=== PATIENT | female | born 1980 | race African-American/Black ===

== ENCOUNTER 2024-02-22 14:52 | Emergency (ER) | payer SELFPAY ==
[2024-02-22 14:57] VITALS: BP 122/72
--- NOTE | 2024-02-22 14:58 | ED.GENMED ---
ED Provider Triage
<Palak Montemayor WORKFORCE MANAGER - Last Filed: 02/22/24 15:02>
-
Patient seen by provider in Triage?: Seen in Triage
Attestation: A medical screening examination has been initiated by a qualified medical provider. Based on the assessment performed at this time, it has been determined that an emergent medical condition may exist and the patient has been informed
that further medical evaluation and possible additional diagnostic testing may be needed.
HPI: 43-year-old female with history of sickle cell anemia states she started to have sickle cell pain 4 days ago. Taking Dilaudid 8 mg q 4-6 hours as needed. Last dose 8 a.m.
Just moved here from [place] 3 weeks ago, has no doctor.
GENERAL: Alert , in no apparent distress
EYE: No visual abnormalities.
ENT: No visible abnormalities.
LUNGS: No acute respiratory distress
NEUROLOGICAL: Alert and oriented
SKIN: Skin intact. No visible changes.
MUSCULOSKELETAL: Moving extremities normally
PSYCH: Normal and appropriate interaction.
This is a medical evaluation conducted in person to initiate diagnostic evaluation and provide initial therapeutics. Please see further documentation by the treating clinician.
History of Present Illness
<Palak Montemayor, WORKFORCE MANAGER - Last Filed: 02/22/24 15:02>
General
Chief Complaint: Generalized Pain
Time Seen by Provider: 02/22/24 15:58
<Benjamín Bryant PA-C - Last Filed: 02/22/24 16:12>
General
Source: patient
History of Present Illness
History of Present Illness:
43-year-old female with history of sickle cell anemia presents with a pain crisis that started about 3 to 4 days ago. She is a recent transplant from [place]. She has been receiving care at [facility]. She is on hydroxyurea and folic
acid. She typically takes 8 mg of Dilaudid every 4 hours as needed for pain. She notes pain in her back and her legs typical with her prior pain crises. No fever or cough. No chest pain or shortness of breath. No other complaints at this time
Phy Exam
<Benjamín Bryant PA-C - Last Filed: 02/22/24 16:12>
Physical Exam
Physical Exam:
General: Well-appearing female no acute respiratory distress
HEENT: Normocephalic atraumatic
Heart: Regular rate and rhythm
Lungs: Clear no wheeze
Abdomen: Soft nontender nondistended
Extremities: No cyanosis
Skin: Warm no rash
Course
<Palak Montemayor NP - Last Filed: 02/22/24 15:02>
Orders/Labs/Results
Orders:
Orders
02/22/24 16:06
0.9% Sodium Chloride 1000 ml [Nss] 1,000 ml IV BOLUS
HYDROmorphone [Dilaudid] 2 mg IV NOW STA
02/22/24 17:00
Complete Blood Count/With Diff Urgent
Comprehensive Metabolic Panel Urgent
Reticulocyte Count Urgent
02/22/24 18:34
HYDROmorphone [Dilaudid] 2 mg IV NOW STA
Abnormal Lab Results
02/22/24
17:00
RBC 3.30 L 10^6/uL
(4.20-5.40)
Hgb 9.9 L g/dL
(12.0-16.0)
Hct 31.6 L %
(37.0-47.0)
MCHC 31.3 L g/dL
(33.0-37.0)
RDW 21.2 H %
(11.5-14.5)
Absolute Lymphs (auto) 0.7 L 10^3/uL
(1.2-3.4)
Neutrophils % 80.8 H %
(42.2-75.2)
Lymphocytes % 9.8 L %
(20.5-51.1)
AST 40 H U/L
(14-36)
02/22/24 17:00
02/22/24 17:00
Vital Signs
Initial and Last Documented VS:
Initial Vital Signs
Temp Pulse Resp BP Pulse Ox
98.0 F 104 16 122/72 98
02/22/24 14:57 02/22/24 14:57 02/22/24 14:57 02/22/24 14:57 02/22/24 14:57
Last Documented Vital Signs
Temp Pulse Resp BP Pulse Ox
98.5 F 86 20 136/75 99
02/22/24 15:52 02/22/24 15:52 02/22/24 15:52 02/22/24 15:52 02/22/24 15:52
<Benjamín Bryant PA-C - Last Filed: 02/22/24 16:12>
Orders/Labs/Results
Orders:
Orders
02/22/24 16:06
0.9% Sodium Chloride 1000 ml [Nss] 1,000 ml IV BOLUS
HYDROmorphone [Dilaudid] 2 mg IV NOW STA
02/22/24 17:00
Complete Blood Count/With Diff Urgent
Comprehensive Metabolic Panel Urgent
Reticulocyte Count Urgent
02/22/24 18:34
HYDROmorphone [Dilaudid] 2 mg IV NOW STA
Abnormal Lab Results
02/22/24
17:00
RBC 3.30 L 10^6/uL
(4.20-5.40)
Hgb 9.9 L g/dL
(12.0-16.0)
Hct 31.6 L %
(37.0-47.0)
MCHC 31.3 L g/dL
(33.0-37.0)
RDW 21.2 H %
(11.5-14.5)
Absolute Lymphs (auto) 0.7 L 10^3/uL
(1.2-3.4)
Neutrophils % 80.8 H %
(42.2-75.2)
Lymphocytes % 9.8 L %
(20.5-51.1)
AST 40 H U/L
(14-36)
02/22/24 17:00
02/22/24 17:00
Vital Signs
Initial and Last Documented VS:
Initial Vital Signs
Temp Pulse Resp BP Pulse Ox
98.0 F 104 16 122/72 98
02/22/24 14:57 02/22/24 14:57 02/22/24 14:57 02/22/24 14:57 02/22/24 14:57
Last Documented Vital Signs
Temp Pulse Resp BP Pulse Ox
98.5 F 86 20 136/75 99
02/22/24 15:52 02/22/24 15:52 02/22/24 15:52 02/22/24 15:52 02/22/24 15:52
<Charles Lee PA-C - Last Filed: 02/22/24 19:55>
Orders/Labs/Results
Orders:
Orders
02/22/24 16:06
0.9% Sodium Chloride 1000 ml [Nss] 1,000 ml IV BOLUS
HYDROmorphone [Dilaudid] 2 mg IV NOW STA
02/22/24 17:00
Complete Blood Count/With Diff Urgent
Comprehensive Metabolic Panel Urgent
Reticulocyte Count Urgent
02/22/24 18:34
HYDROmorphone [Dilaudid] 2 mg IV NOW STA
Abnormal Lab Results
02/22/24
17:00
RBC 3.30 L 10^6/uL
(4.20-5.40)
Hgb 9.9 L g/dL
(12.0-16.0)
Hct 31.6 L %
(37.0-47.0)
MCHC 31.3 L g/dL
(33.0-37.0)
RDW 21.2 H %
(11.5-14.5)
Absolute Lymphs (auto) 0.7 L 10^3/uL
(1.2-3.4)
Neutrophils % 80.8 H %
(42.2-75.2)
Lymphocytes % 9.8 L %
(20.5-51.1)
AST 40 H U/L
(14-36)
02/22/24 17:00
02/22/24 17:00
Vital Signs
Initial and Last Documented VS:
Initial Vital Signs
Temp Pulse Resp BP Pulse Ox
98.0 F 104 16 122/72 98
02/22/24 14:57 02/22/24 14:57 02/22/24 14:57 02/22/24 14:57 02/22/24 14:57
Last Documented Vital Signs
Temp Pulse Resp BP Pulse Ox
98.5 F 86 20 136/75 99
02/22/24 15:52 02/22/24 15:52 02/22/24 15:52 02/22/24 15:52 02/22/24 15:52
<Benjamín Bryant PA-C - Last Filed: 02/22/24 16:12>
MDM/Problems Addressed
Differential Diagnosis Includes:
Patient with history of sickle cell anemia presents with sickle cell crisis. She notes pain to her back and legs. Will check labs including reticulocyte count. Fluids ordered pain medicine ordered.
<Charles Lee PA-C - Last Filed: 02/22/24 19:55>
*Critical Care Note
Total Time (30-74mins, 75-104mins- exclusive of procedures): Not Applicable
<Charles Lee PA-C - Last Filed: 02/22/24 19:55>
Update Note
Update Note:
Assumed care of patient from Moody Bryant PA-C at shift change 1700. Awaiting labs and reassessment for pain control for presumed sickle cell crisis
On reassessment the patient is complaining continued pain however she has a normal reticulocyte count and normal total bilirubin, highly unlikely that this patient is in acute sickle cell crisis she is clinically stable, no further doses of
hydromorphone given, discharged in stable condition, given information for outpatient hematology follow-up
ED Attending Note
<Palak Montemayor NP - Last Filed: 02/22/24 15:02>
-
Portions of this chart may have been created with voice recognition software.� Occasional wrong word or��sound alike� substitutions may have occurred due to the inherent limitations of voice recognition software.
Discharge Plan
Departure
Patient Disposition: Home (Routine Discharge)
Date of Disposition: 02/22/24
Time of Disposition: 18:48
Patient with high blood pressure during this ER visit?: No
Discharge Problem:
Myalgia
Instructions: Chronic Pain (DC)
Prescriptions:
No Action
hydromorphone [Dilaudid] 8 mg Tablet
8 mg PO Q4H PRN (Reason: pain)
Referrals:
Emmy Lowery MD [Active] -
NONE,* [Family Provider] -
Interventions
Interventions:
*Risk Screen - Suicide Last Done: 02/22/24 14:57
*General Assessment Last Done: 02/22/24 15:52
*Neglect/Abuse Screening Last Done: 02/22/24 14:57
ED- Fall Risk Assessment Last Done: 02/22/24 15:52
*ED COVID-19 Vaccine History Last Done: 02/22/24 15:52
*Nursing Disposition Last Done: 02/22/24 18:56
Discharge Date and Time
Discharge Date/Time: 02/22/24 18:57
Print Language: CITIZEN OF [place]
[2024-02-22 15:52] VITALS: BP 136/75; BMI 49.8
--- NOTE | 2024-02-22 16:53 | EDRN ---
Td FIELDS currently at the pts bedside with Moody IFELDS attempting to place a PIV with ultrasound
[2024-02-22] MEDS: DILAUDID 2 MG IV (16:58)
[2024-02-22] MEDS: NSS 1000 IV (16:58)
[2024-02-22 17:21] LABS: Hematocrit 31.6 % (37.0-47.0); Hemoglobin 9.9 g/dL (12.0-16.0); Mean Corp Hgb Conc. 31.3 g/dL (33.0-37.0); Mean Corpuscular Volume 95.8 fL (81.0-99.0); Mean Platelet Volume 10.3 fL (7.4-10.4); Platelet Count 172 10^3/uL (130-400); Red Cell Dist. Width 21.2 % (11.5-14.5); White Blood Cell Count 7.2 10^3/uL (4.8-10.8)
[2024-02-22 17:24] LABS: ALT (SGPT) 32 U/L (0-35); AST (SGOT) 40 U/L (14-36); Albumin 4.2 g/dl (3.5-5.0); Alkaline Phosphatase 102 U/L (38-126); Blood Urea Nitrogen 8 mg/dl (7-17); Carbon Dioxide 28 mmol/L (22-30); Chloride 102 mmol/L (98-107); Estimated Creatinine Clearance > 125 ml/min; Glucose 91 mg/dl (70-99); Potassium 3.8 mmol/L (3.5-5.1); Sodium 138 mmol/L (135-145); Total Bilirubin 0.4 mg/dl (0.2-1.3); Total Protein 7.2 g/dl (6.3-8.2); eGFR > 60.00
[2024-02-22 17:54] LABS: % Basophils 0.1 % (0-2); % Immature Granulocytes 0.3 % (0-0.5); % Lymphocytes 9.8 % (20.5-51.1); % Neutrophils 80.8 % (42.2-75.2); Absolute Eosinophils 0.1 10^3/uL (0-0.7); Absolute Lymphocytes 0.7 10^3/uL (1.2-3.4); Absolute Monocytes 0.5 10^3/uL (0.1-0.6); Absolute Neutrophils 5.8 10^3/uL (1.4-6.5); Nucleated Red Blood Cells % 0 %; Reticulocyte Count 1.2 % (0.4-2.8)
== END 2024-02-22 18:57 | disposition home or self-care (01) ==
LOC: EMR 14:52
PROVIDERS: Physician Assistant; EMERGENCY PHYSICIAN Emergency Medicine
DX: M79.18 Myalgia, other site (principal); D57.1 Sickle-cell disease without crisis
CPT/HCPCS: 96374; 96361; 99284; 80053; 85025; 85045; 96375